=== PATIENT | male | born 1990 | race Caucasian/White ===

== ENCOUNTER 2019-12-03 19:04 | Emergency (ER) | payer MEDICAID ==
--- NOTE | 2019-12-03 19:30 | ERPHSYRPT ---
- History of Present Illness Time Seen by Provider: 12/03/19 19:20 Historian: patient Exam Limitations: no limitations Physician History: Patient is a 29-year-old male presents to our ED with complaints of left lower abdominal pain. Patient has been experiencing chronic pain at this location for several years however pain became acutely worse this morning. Patient states he can feel a palpable mass at this location. Patient concerned he may have a hernia. Pain described as an ache that is well localized. No radiation. Pain worse with movement and palpation. Pain improved with rest. No associated trauma. No fevers. No nausea or vomiting. No diarrhea. No hematuria patient is otherwise healthy. He voices no other complaints at this time. Timing/Duration: today (Acute on chronic pain.) Activities at Onset: none Quality: aching Abdominal Pain Onset Location: LLQ Pain Radiation: no radiation Severity of Pain-Max: moderate Severity of Pain-Current: mild Modifying Factors: Improves With: movement, palpation Associated Symptoms: denies symptoms, No chest pain, No fever/chills, No nausea , No testicular pain, No vomiting Previous symptoms: same symptoms as today Allergies/Adverse Reactions: No Known Drug Allergies Allergy (Unverified 12/03/19 19:42) Home Medications: No Reportable Medications [No Reported Medications] 12/03/19 [History] - Review of Systems Constitutional: No Symptoms, No Fever, No Chills Eyes: No Symptoms Ears, Nose, & Throat: No Symptoms Respiratory: No Symptoms, No Cough, No Dyspnea Cardiac: No Symptoms, No Chest Pain, No Edema, No Syncope Abdominal/Gastrointestinal: No Symptoms, Abdominal Pain, No Nausea, No Vomiting , No Diarrhea Genitourinary Symptoms: No Symptoms, No Dysuria Musculoskeletal: No Symptoms, No Back Pain, No Neck Pain Skin: No Symptoms, No Rash Neurological: No Symptoms, No Dizziness, No Focal Weakness, No Sensory Changes Psychological: No Symptoms Endocrine: No Symptoms Hematologic/Lymphatic: No Symptoms Immunological/Allergic: No Symptoms All Other Systems: Reviewed and Negative - Past Medical History Pertinent Past Medical History: No Neurological History: No Pertinent History ENT History: No Pertinent History Cardiac History: No Pertinent History Respiratory History: No Pertinent History Endocrine Medical History: No Pertinent History Musculoskeletal History: No Pertinent History GI Medical History: No Pertinent History History: No Pertinent History Psycho-Social History: No Pertinent History Male Reproductive Disorders: No Pertinent History - Past Surgical History Past Surgical History: Yes Neuro Surgical History: No Pertinent History Cardiac: No Pertinent History Respiratory: No Pertinent History Gastrointestinal: Hernia Repair Genitourinary: No Pertinent History Musculoskeletal: No Pertinent History Male Surgical History: No Pertinent History - Social History Drug Use: none - Nursing Vital Signs Nursing Vital Signs: Initial Vital Signs Temperature 98.5 F 12/03/19 19:15 Pulse Rate 69 12/03/19 19:15 Respiratory Rate 20 12/03/19 19:15 Blood Pressure 166/101 12/03/19 19:15 O2 Sat by Pulse Oximetry 99 12/03/19 19:15 Pain Scale Pain Intensity 5 - Physical Exam General Appearance: no apparent distress, alert Eye Exam: PERRL/EOMI, eyes nml inspection, No scleral icterus Ears, Nose, Throat Exam: normal ENT inspection, pharynx normal, moist mucous membranes Neck Exam: normal inspection, non-tender, supple, full range of motion, No mass Respiratory Exam: normal breath sounds, lungs clear, No respiratory distress, No airway intact, No accessory muscle use Cardiovascular Exam: regular rate/rhythm, normal heart sounds, No normal peripheral pulses, No capillary refill <2 sec Gastrointestinal/Abdomen Exam: soft, normal bowel sounds, tenderness, No mass, No guarding (Tenderness to palpation left lower quadrant. Palpation in this location reproduces patient symptomology. Overlying soft tissue intact. No signs of trauma. Negative [place] sign. Negative [place] Em sign.) Back Exam: normal inspection, normal range of motion, No CVA tenderness, No vertebral tenderness Extremity Exam: normal inspection, normal range of motion, pelvis stable Neurologic Exam: alert, oriented x 3, cooperative, normal mood/affect, nml cerebellar function, sensation nml, No motor deficits Skin Exam: normal color, warm, dry, No rash, No jaundice Lymphatic Exam: No adenopathy SpO2 Interpretation: normal SpO2: 99 O2 Delivery: Room Air - Course Nursing assessment & vital signs reviewed: Yes - CT Exams Abdomen/Pelvis CT Interpretation: Tele-radiologist Report (There is fecal retention, periumbilical and umbilical fat-containing hernia, diverticulosis no diverticulitis) Ordered Tests: Active Orders 24 hr Category Date Time Status IV Insertion STAT Care 12/03/19 19:20 Active Isolation, Initiate & Maintain Q4H Care 12/03/19 19:29 Active ABDOMEN AND PELVIS W CONTRAST [CT] Stat Exams 12/03/19 19:22 Taken CBC W DIFF Stat Lab 12/03/19 19:43 Completed CMP Stat Lab 12/03/19 19:43 Completed LIPASE Stat Lab 12/03/19 19:43 Completed UA W/RFX UR CULTURE Stat Lab 12/03/19 19:59 Completed Medication Summary Discontinued Medications Generic Name Dose Route Start Last Admin Trade Name Eric PRN Reason Stop Dose Admin Sodium Chloride 1,000 mls @ 999 mls/hr 12/03/19 19:20 12/03/19 20:03 Sodium Chloride 0.9% 1000 Ml IV 12/03/19 20:20 999 mls/hr .Q1H1M STA Administration Sodium Chloride Confirm 12/03/19 19:55 Sodium Chloride 0.9% 1000 Ml Administered 12/03/19 19:56 Dose 1,000 mls @ ud .ROUTE .STK-MED ONE Ketorolac Tromethamine 30 mg 12/03/19 19:20 12/03/19 19:56 Toradol 30 Mg Injection IV 12/03/19 19:21 30 mg STAT ONE Administration Ketorolac Tromethamine Confirm 12/03/19 19:55 Toradol 30 Mg Injection Administered 12/03/19 19:56 Dose 30 mg .ROUTE .STK-MED ONE Lab/Rad Data: Laboratory Result Diagrams 12/03/19 19:43 12/03/19 19:43 Laboratory Results 12/03/19 12/03/19 12/03/19 Range/Units 19:59 19:43 19:43 WBC 10.5 (4.0-10.5) K/mm3 RBC 5.11 (4.1-5.6) M/mm3 Hgb 16.3 (12.5-18.0) gm/dl Hct 46.4 (42-50) % MCV 90.8 (78-100) fl MCH 31.9 (26-32) pg MCHC 35.1 (32-36) g/dl RDW 13.3 (11.5-14.0) % Plt Count 277 (150-450) K/mm3 MPV 11.5 H (7.5-11.0) fl Gran % 58.9 (36.0-66.0) % Eos # (Auto) 0.34 (0-0.5) Absolute Lymphs (auto) 3.01 (1.0-4.6) Absolute Monos (auto) 0.96 (0.0-1.3) Lymphocytes % 28.6 (24.0-44.0) % Monocytes % 9.1 (0.0-12.0) % Eosinophils % 3.2 (0.00-5.0) % Basophils % 0.2 (0.0-0.4) % Absolute Granulocytes 6.19 (1.4-6.9) Basophils # 0.02 (0-0.4) Sodium 141 (137-145) mmol/L Potassium 3.9 (3.5-5.1) mmol/L Chloride 103 (98-107) mmol/L Carbon Dioxide 27 (22-30) mmol/L Anion Gap 15.2 H (5-15) MEQ/L BUN 17 (9-20) mg/dL Creatinine 1.03 (0.66-1.25) mg/dL Estimated GFR > 60.0 ML/MIN Glucose 87 (74-106) mg/dL Calcium 9.9 (8.4-10.2) mg/dL Total Bilirubin 0.50 (0.2-1.3) mg/dL AST 39 (17-59) U/L ALT 69 H (0-50) U/L Alkaline Phosphatase 51 (38-126) U/L Serum Total Protein 8.1 (6.3-8.2) g/dL Albumin 4.9 (3.5-5.0) g/dL Lipase 42 (23-300) U/L Urine Color YELLOW (YELLOW) Urine Appearance CLEAR (CLEAR) Urine pH 7.0 (5-6) Ur Specific [place] 1.016 (1.005-1.025) Urine Protein NEGATIVE (Negative) Urine Ketones SMALL (NEGATIVE) Urine Blood NEGATIVE (0-5) Luis E/ul Urine Nitrite NEGATIVE (NEGATIVE) Urine Bilirubin NEGATIVE (NEGATIVE) Urine Urobilinogen NEGATIVE (0-1) mg/dL Ur Leukocyte Esterase NEGATIVE (NEGATIVE) Urine WBC (Auto) NONE (0-5) /HPF Urine RBC (Auto) NONE (0-2) /HPF U Epithel Cells (Auto) NONE (FEW) /HPF Urine Bacteria (Auto) NONE (NEGATIVE) /HPF Urine Culture Reflexed NO (NO) Urine Glucose NEGATIVE (NEGATIVE) mg/dL - Progress Progress: improved Progress Note: 12/03/19 21:29 Patient reassessed. He feels well. No active pain. Patient has no complaints. Work-up significant for fecal retention which may be causing patient symptomology. No further work-up or intervention at this time. Will discharge patient home. Patient may consider [id number] laxative. Counseled pt/family regarding: lab results, diagnosis, need for follow-up, rad results - Departure Departure Disposition: Home Clinical Impression: Constipation, intestinal colic Condition: Stable Critical Care Time: No Referrals: DOCTOR,NO FAMILY [Primary Care Provider] - MARYCRUZ ELIZABETH DO [ACTIVE STAFF] - Additional Instructions: Discharge/Care Plan YOAN MATEHWS was seen on 12/03/19 in the Emergency Room. The patient was counseled regarding Diagnosis,Lab results, Imaging studies, need for follow up and when to return to the Emergency Room. Prescriptions given: Discharge Note I have spoken with the patient and/or caregivers. I have explained the patient' s condition, diagnosis and treatment plan based on the information available to me at this time. I have answered the patient's and/or caregiver's questions and addressed any concerns. The patient and/or caregivers have as good understanding of the patient's diagnosis, condition and treatment plan as can be expected at this point. The vital signs have been stable. The patient's condition is stable and appropriate for discharge from the emergency department. The patient will pursue further outpatient evaluation with the primary care physician or other designated or consulting physician as outlined in the discharge instructions. The patient and/or caregivers are agreeable to this plan of care and follow-up instructions have been explained in detail. The patient and/or caregivers have received these instruction. The patient/and or caregivers are aware that any significant change in condition or worsening of symptoms should prompt an immediate return to this or the closest emergency department or call 911.
[2019-12-03] MEDS ORDERED: TORAdol 30 mg Injection ONE (19:55)
[2019-12-03] MEDS ORDERED: Sodium Chloride 0.9% 1000 ML 1,000 ML ONE (19:55)
[2019-12-03] MEDS: TORAdol 30 mg Injection IV ONE (19:56)
[2019-12-03 20:00] LABS: Absolute Neutrophil Ct (ANC) 6.19 (1.4-6.9); BASOPHIL % 0.2 % (0.0-0.4); Basophil (Absolute #) 0.02 (0-0.4); Eosinophil % 3.2 % (0.00-5.0); Eosinophil (Absolute #) 0.34 (0-0.5); Hematocrit 46.4 % (42-50); Hemoglobin 16.3 gm/dl (12.5-18.0); Lymphocyte (Absolute #) 3.01 (1.0-4.6); Lymphocytes % 28.6 % (24.0-44.0); Mean Cell Volume 90.8 fl (78-100); Mean Corpuscular Hemoglobin 31.9 pg (26-32); Mean Corpuscular Hgb Concent. 35.1 g/dl (32-36); Mean Platelet Volume 11.5 fl (7.5-11.0); Monocyte (Absolute #) 0.96 (0.0-1.3); Monocytes % 9.1 % (0.0-12.0); Neutrophil % 58.9 % (36.0-66.0); Platelet Count 277 K/mm3 (150-450); Red Blood Count 5.11 M/mm3 (4.1-5.6); Red Cell Distribution Width 13.3 % (11.5-14.0); White Blood Count 10.5 K/mm3 (4.0-10.5)
[2019-12-03 20:03] LABS: Appearance CLEAR (CLEAR); Bilirubin NEGATIVE (NEGATIVE); Blood NEGATIVE Ery/ul (0-5); Glucose NEGATIVE (NEGATIVE); Ketones SMALL (NEGATIVE); Leukocyte Esterase NEGATIVE (NEGATIVE); Nitrite NEGATIVE (NEGATIVE); Protein,Urine Dip NEGATIVE (Negative); Specific Gravity 1.016 (1.005-1.025); Urobilinogen NEGATIVE mg/dL (0-1)
[2019-12-03] MEDS: Sodium Chloride 0.9% 1000 ML 1,000 ML IV STA (20:03)
[2019-12-03 20:06] LABS: ALBUMIN 4.9 g/dL (3.5-5.0); ALKALINE PHOSPHATASE 51 U/L (38-126); ANION GAP 15.2 MEQ/L (5-15); BLOOD UREA NITROGEN 17 mg/dL (9-20); CHLORIDE 103 mmol/L (98-107); Calcium 9.9 mg/dL (8.4-10.2); Carbon Dioxide 27 mmol/L (22-30); Creatinine 1 1.03 mg/dL (0.66-1.25); Glucose 87 mg/dL (74-106); LIPASE 42 U/L (23-300); Potassium 3.9 mmol/L (3.5-5.1); SGOT/AST 39 U/L (17-59); SGPT/ALT 69 U/L (0-50); SODIUM 141 mmol/L (137-145); Total Protein 8.1 g/dL (6.3-8.2)
[2019-12-03 21:33] VITALS: BP 156/96; PULSE 74; O2SAT 99
--- NOTE | 2019-12-04 11:42 | XRAY ---
Exam: CT of the abdomen and pelvis with IV contrast from 12/03/2019. CTDI: 7.53 mGy Comparison: None. Indication: 29-year-old male complains of localized abdominal pain within the left lower quadrant. He has a history of bilateral inguinal hernia repair as an infant. Complains of severe left lower quadrant abdominal pain for one day with a "knot" located anteriorly. The patient states that his pain has been in the same spot for 2 years, although the "knot" comes and goes. Technique: Post-IV contrast axial images were obtained during and following automated injection of 80 ML's of Isovue 370 contrast material. Reconstructed coronal and sagittal images were created and reviewed. Findings: The visualized lung bases are clear except for some minimal posterior bibasilar compression atelectasis. The liver is of unremarkable size and uniform attenuation. No hepatic mass or biliary duct distention is seen. The gallbladder is relatively contracted. No definite high attenuation stone is seen within the gallbladder lumen. The spleen appears of normal size and reveals no mass. The pancreas and adrenal glands appear unremarkable. The kidneys appear of normal size and shape. No renal mass, hydronephrosis, or renal calculi are seen. The kidneys function well on delayed images. The abdominal aorta appears of normal diameter without abdominal aortic aneurysm or abnormal retroperitoneal lymphadenopathy. I see no free intraperitoneal air. There is a mild umbilical/periumbilical fat-containing hernia measuring a maximum of 3.6 cm in craniocaudal dimension and 3.0 cm in maximum width. No bowel containing hernia is seen at this level. The remainder of the anterior abdominal wall appears intact. The appendix appears unremarkable without evidence of appendicitis. No abnormal bowel distention is seen to suggest obstruction. Scattered nonspecific stool is seen within the cecum, ascending colon, transverse colon, and descending colon. I see no significant bowel wall thickening to suggest colitis. There appears to be some minimal colonic diverticulosis without evidence of diverticulitis, particularly within the left lower quadrant. There is no free intraperitoneal fluid. No ureteral calculi or distention is seen. The urinary bladder appears unremarkable. The seminal vesicles appear normal. The prostate gland is not enlarged. No enlarged pelvic lymph nodes are seen. The skeleton reveals no acute fracture or aggressive bone lesion. Impression: 1. Mild fat-containing umbilical/periumbilical hernia without evidence of herniated bowel loops. The remainder of the anterior abdominal wall appears intact. 2. Minimal colonic diverticulosis without evidence of acute diverticulitis. 3. Normal appendix. 4. Mild colonic stool retention within the cecum, ascending colon, transverse colon, and descending colon. No bowel obstruction is seen. 5. No other acute process is seen within the abdomen or pelvis..
== END 2019-12-03 21:45 | disposition home or self-care (01) ==
LOC: ED 19:04
DX: K59.00 Constipation, unspecified (principal); R10.84 Generalized abdominal pain
CPT/HCPCS: 36000; 36415; 74177; 80053; 81001; 83690; 85025; 96360; 96374; 99284; J1885

== ENCOUNTER 2021-11-11 23:54 | Emergency (ER) | payer BC ==
--- NOTE | 2021-11-11 23:57 | ERPHSYRPT ---
- History of Present Illness Time Seen by Provider: 11/11/21 23:57 Source: patient Exam Limitations: no limitations Physician History: This is a 31-year-old white male who was having some left ear pain yesterday and throughout the day it seemed to worsen. He was concerned he might of perforated his eardrum. He can hear fine now per his report. However he felt as though earlier he was having some muffled hearing. This has improved. However he still has a persistent pain. He says he is having significant pain where he cannot sleep and he has to get up at 5 AM today to go to work. He has to go to work he says he cannot miss work. He has no chest pain. He has no shortness of breath. He has no fevers. He has no abdominal pain. He denies injury to the left ear. Severity: moderate ENT Location: ear (L) Prearrival Treatment: no prearrival treatment Modifying Factors: Improves With: activity Associated Symptoms: ear pain (L) Allergies/Adverse Reactions: No Known Drug Allergies Allergy (Verified 11/12/21 00:15) Hx Tetanus, Diphtheria Vaccination/Date Given: Yes Hx Influenza Vaccination/Date Given: No Hx Pneumococcal Vaccination/Date Given: No Travel Risk - International Travel Have you traveled outside of the country in past 3 weeks: No - Coronavirus Screening Are you exhibiting any of the following symptoms?: No Close contact with a COVID-19 positive Pt in past 14-21 Days: No - Review of Systems Constitutional: No Symptoms Eyes: No Symptoms Ears, Nose, & Throat: No Symptoms, Ear Pain, Hearing Changes (Has resolved), No Ear Discharge Respiratory: No Symptoms Cardiac: No Symptoms Abdominal/Gastrointestinal: No Symptoms Genitourinary Symptoms: No Symptoms Musculoskeletal: No Symptoms Skin: No Symptoms Neurological: No Symptoms Psychological: No Symptoms Endocrine: No Symptoms Hematologic/Lymphatic: No Symptoms Immunological/Allergic: No Symptoms All Other Systems: Reviewed and Negative - Past Medical History Pertinent Past Medical History: No Neurological History: No Pertinent History ENT History: No Pertinent History Cardiac History: No Pertinent History Respiratory History: No Pertinent History Endocrine Medical History: No Pertinent History Musculoskeletal History: No Pertinent History GI Medical History: No Pertinent History History: No Pertinent History Psycho-Social History: No Pertinent History Male Reproductive Disorders: No Pertinent History - Past Surgical History Past Surgical History: Yes Neuro Surgical History: No Pertinent History Cardiac: No Pertinent History Respiratory: No Pertinent History Gastrointestinal: Hernia Repair Genitourinary: No Pertinent History Musculoskeletal: No Pertinent History Male Surgical History: No Pertinent History - Social History Smoking Status: Current every day smoker How long have you smoked: 30 years Exposure to second hand smoke: Yes Drug Use: none Patient Lives Alone: No - Nursing Vital Signs Nursing Vital Signs: Initial Vital Signs Temperature 97.3 F 11/11/21 23:54 Pulse Rate 82 11/11/21 23:54 Respiratory Rate 18 11/11/21 23:54 Blood Pressure 155/102 11/11/21 23:54 O2 Sat by Pulse Oximetry 98 11/11/21 23:54 Pain Scale Pain Intensity 10 - Physical Exam General Appearance: no apparent distress, alert, anxiety Eye Exam: bilateral eye: normal inspection, PERRL, EOMI Ear Exam: right ear: canal normal, TM normal, left ear: swelling, tenderness, TM red, bilateral ear: auricle normal Nasal Exam: normal inspection Throat Exam: normal, pharynx normal, No dental tenderness Neck Exam: normal inspection, non-tender, supple, full range of motion, trachea midline Cardiovascular/Respiratory Exam: chest non-tender, no respiratory distress Abdominal Exam: non-tender Neurologic Exam: alert, oriented x 3, cooperative, executive sales assistant II-XII nml as tested, normal mood/affect, nml cerebellar function, nml station & gait, sensation nml Skin Exam: normal color, warm, dry SpO2 Interpretation: normal O2 Delivery: Room Air - Course Nursing assessment & vital signs reviewed: Yes Ordered Tests: Medication Summary Discontinued Medications Generic Name Dose Route Start Last Admin Trade Name Eric PRN Reason Stop Dose Admin Hydrocodone Bitart/Acetaminophen 1 tab 11/12/21 00:23 Hydrocodone/Apap 5/325 Mg Tablet PO 11/12/21 00:24 STAT ONE Amoxicillin 500 mg 11/12/21 00:21 Amoxicillin Trihydrate 500 Mg Capsule PO 11/12/21 00:22 STAT ONE Prednisone 20 mg 11/12/21 00:22 Prednisone 20 Mg Tablet PO 11/12/21 00:23 STAT ONE - Progress Progress: unchanged Counseled pt/family regarding: diagnosis, need for follow-up - Departure Departure Disposition: Home Clinical Impression: Left otitis media Condition: Stable Critical Care Time: No Referrals: DOCTOR,NO FAMILY [Primary Care Provider] - Follow up/PCP as directed Additional Instructions: Take your antibiotics as prescribed. Take your other medications as prescribed. Follow-up with a ear nose and throat physician later this morning to make arrangements for follow-up appointment and for further management. Prescriptions: Amoxicillin 500 mg Cap [Amoxil 500 mg] 500 mg PO TID #30 cap Prednisone 10 mg [Deltasone 10 mg] 10 mg PO TID #12 tablet
[2021-11-12] MEDS ORDERED: AMOXIL 500 MG PO ONE (00:21)
[2021-11-12] MEDS ORDERED: DELTASONE 20 MG PO ONE (00:22)
[2021-11-12] MEDS ORDERED: NORCO 5/325 MG PO ONE (00:23)
[2021-11-12] MEDS ORDERED: DELTASONE 20 MG ONE (00:29)
[2021-11-12] MEDS ORDERED: AMOXIL 500 MG ONE (00:29)
[2021-11-12] MEDS ORDERED: NORCO 5/325 MG ONE (00:29)
[2021-11-12 00:39] VITALS: BP 129/87; PULSE 73; O2SAT 95
== END 2021-11-12 01:08 | disposition home or self-care (01) ==
LOC: ED 23:54
DX: H66.92 Otitis media, unspecified, left ear (principal); Z72.0 Tobacco use; H92.02 Otalgia, left ear; Z79.52 Long term (current) use of systemic steroids
CPT/HCPCS: 99283; A9270-GY

== ENCOUNTER 2022-05-29 02:21 | Emergency (ER) | payer BC ==
--- NOTE | 2022-05-29 04:06 | ERPHSYRPT ---
- History of Present Illness Time Seen by Provider: 05/29/22 04:03 Historian: patient Exam Limitations: no limitations Patient Subjective Stated Complaint: pt states "I haven't had a bowel movement in 4 days." Triage Nursing Assessment: pt ambulatory to bed by self, A&O x3, c/o constipation x4 days, pt has tried miralax, mag citrate, and enemas at home with no relief, pt is passing gas, bowel sounds active in all 4 quadrants, LLQ tender upon palpation, pt has hx of hernia repair as an infant, pt recently has quit smoking 3 days ago Physician History: 31 years old male presented in the ER with chief complaint of constipation. Patient reports he has lost bowel movement for almost 4 days ago. Patient feels that he needs to go but cannot despite taking [id number] laxatives. Patient feels some cramping on bilateral flanks. No nausea or vomiting reported. He also has taken enema with no relief. Patient recently started a new job and cold turkey quit almost 2 packs daily smoking and is having aches an d pains all over. Feels a little anxious. Timing/Duration: day(s) (4), gradual onset Activities at Onset: rest Quality: cramping Abdominal Pain Onset Location: generalized abdomen Pain Radiation: no radiation Severity of Pain-Max: moderate Severity of Pain-Current: mild Modifying Factors: Improves With: nothing Associated Symptoms: fatigue Allergies/Adverse Reactions: No Known Drug Allergies Allergy (Verified 11/12/21 00:15) Home Medications: No Reportable Medications [No Reported Medications] 05/29/22 [History] Hx Tetanus, Diphtheria Vaccination/Date Given: Yes Hx Influenza Vaccination/Date Given: No Hx Pneumococcal Vaccination/Date Given: No Immunizations Up to Date: Yes Travel Risk - International Travel Have you traveled outside of the country in past 3 weeks: No - Coronavirus Screening Are you exhibiting any of the following symptoms?: No Close contact with a COVID-19 positive Pt in past 14-21 Days: No - Vaccine Status Have you recieved a Covid-19 vaccination: No - Review of Systems Constitutional: Fatigue Eyes: No Symptoms Ears, Nose, & Throat: No Symptoms Respiratory: No Symptoms Cardiac: No Symptoms Abdominal/Gastrointestinal: Abdominal Pain, Constipation Genitourinary Symptoms: No Symptoms Musculoskeletal: Myalgias Skin: No Symptoms Neurological: No Symptoms Endocrine: No Symptoms Immunological/Allergic: No Symptoms - Past Medical History Pertinent Past Medical History: No Neurological History: No Pertinent History ENT History: No Pertinent History Cardiac History: No Pertinent History Respiratory History: No Pertinent History Endocrine Medical History: No Pertinent History Musculoskeletal History: No Pertinent History GI Medical History: No Pertinent History History: No Pertinent History Psycho-Social History: No Pertinent History Male Reproductive Disorders: No Pertinent History - Past Surgical History Past Surgical History: Yes Neuro Surgical History: No Pertinent History Cardiac: No Pertinent History Respiratory: No Pertinent History Gastrointestinal: Hernia Repair Genitourinary: No Pertinent History Musculoskeletal: No Pertinent History Male Surgical History: No Pertinent History Other Surgical History: tubes in ears twice as a child - Social History Smoking Status: Former smoker How long have you smoked: 30 years Exposure to second hand smoke: No Drug Use: none Patient Lives Alone: No - Nursing Vital Signs Nursing Vital Signs: Initial Vital Signs Temperature 97.9 F 05/29/22 02:34 Pulse Rate 85 05/29/22 02:34 Respiratory Rate 15 05/29/22 02:34 Blood Pressure 137/99 05/29/22 02:34 O2 Sat by Pulse Oximetry 98 05/29/22 02:34 Pain Scale Pain Intensity 2 - Physical Exam General Appearance: no apparent distress, alert Eye Exam: PERRL/EOMI Ears, Nose, Throat Exam: normal ENT inspection Neck Exam: normal inspection Respiratory Exam: normal breath sounds, lungs clear Cardiovascular Exam: regular rate/rhythm, normal heart sounds Gastrointestinal/Abdomen Exam: soft, normal bowel sounds, No tenderness Back Exam: normal inspection, normal range of motion Extremity Exam: normal inspection, normal range of motion Neurologic Exam: alert, oriented x 3, cooperative Skin Exam: normal color SpO2 Interpretation: normal SpO2: 94 O2 Delivery: Room Air Ordered Tests: Active Orders 24 hr Category Date Time Status KUB Stat Exams 05/29/22 02:59 Taken - Progress Progress: unchanged Progress Note: 05/29/22 04:04 Abdominal exam is soft nontender with good bowel sounds in all 4 quadrants. X- rays negative for obstruction. No extra/heavy stool load noted on the x-rays. Patient later on reported that he has not been eating well in the last 2 days. I believe patient is having cramping from taking all these laxatives. Also having some symptoms of nicotine withdrawals. I would not give him any enema, and recommended increase fiber in diet/daily MiraLAX and outpatient follow-up. Recommended using nicotine patches/gums to help with quitting. Discussed signs symptoms of worsening needing return to ER which she seems understanding. Stable for discharge. Counseled pt/family regarding: diagnosis, need for follow-up, rad results - Departure Departure Disposition: Home Clinical Impression: Constipation Condition: Stable Critical Care Time: No Referrals: DOCTOR,NO FAMILY [Primary Care Provider] - Follow up/PCP as directed ESTRELLA FULLER MD [ACTIVE STAFF] - Follow Up with PCP/3 days Instructions: Constipation, Adult (DC) Additional Instructions: Take daily 17 grams of MiraLAX. Increase fiber in diet. Take Tylenol/ibuprofen as needed for pain. Follow-up with primary care for reevaluation. Return to ER for inability to have a bowel movement, abdominal pain/cramping/nausea vomiting etc.
[2022-05-29 04:24] VITALS: BP 124/82; PULSE 76; O2SAT 97
--- NOTE | 2022-05-29 08:36 | XRAY ---
Indication: Abdomen pain and constipation. Obstruction. Comparison: None KUB nonacute and nonobstructed. Solid organs and osseous structures unremarkable. Comment: Preliminary interpretation made by [facility]. No critical discrepancy.
== END 2022-05-29 04:24 | disposition home or self-care (01) ==
LOC: ED 02:21
DX: K59.00 Constipation, unspecified (principal); R10.9 Unspecified abdominal pain; F17.213 Nicotine dependence, cigarettes, with withdrawal; Z28.310 Unvaccinated for COVID-19
CPT/HCPCS: 74018; 99282

== ENCOUNTER 2023-01-17 15:51 | Emergency (ER) | payer BC ==
[2023-01-17 16:04] VITALS: BP 145/101; PULSE 80; O2SAT 96
--- NOTE | 2023-01-17 16:32 | ERPHSYRPT ---
- History of Present Illness Time Seen by Provider: 01/17/23 15:55 Source: patient Exam Limitations: no limitations Patient Subjective Stated Complaint: pt arrived per wc, co pain to right foot and ankle after kicking a door about 30 mins ago Triage Nursing Assessment: pt alert, resp easy, skin w/d/p. arrived per wc, skin w/d/p, no swelling or bruiising to right foot, strong radial pulse Physician History: 32 years old male presented in the ER after he got angry at something and kicked the door really hard with shoes on. This happened almost 30 minutes prior to arrival with moderate to severe sharp pain in the foot and ankle, gets worse with ambulation. And better with resting. No injury anywhere else. Method of Injury: direct blow Occurred: just prior to arrival Quality: sharpness Severity of Pain-Max: moderate Severity of Pain-Current: moderate Lower Extremities Pain: foot: right, ankle: right Modifying Factors: Improves With: immobilization. Worsens With: movement Associated Symptoms: none Allergies/Adverse Reactions: No Known Drug Allergies Allergy (Verified 01/17/23 15:55) Home Medications: Lamotrigine [Lamotrigine ER] 50 mg PO DAILY 01/17/23 [History] Venlafaxine HCl 37.5 mg [Effexor 37.5 mg] 37.5 mg PO DAILY 01/17/23 [History] Hx Tetanus, Diphtheria Vaccination/Date Given: No Hx Influenza Vaccination/Date Given: No Hx Pneumococcal Vaccination/Date Given: No Immunizations Up to Date: Yes Travel Risk - International Travel Have you traveled outside of the country in past 3 weeks: No - Coronavirus Screening Are you exhibiting any of the following symptoms?: No Close contact with a COVID-19 positive Pt in past 14-21 Days: No - Vaccine Status Have you recieved a Covid-19 vaccination: No - Review of Systems Constitutional: No Symptoms Ears, Nose, & Throat: No Symptoms Respiratory: No Symptoms Cardiac: No Symptoms, Orthopnea Musculoskeletal: Injury Neurological: No Symptoms Endocrine: No Symptoms - Past Medical History Pertinent Past Medical History: Yes Neurological History: No Pertinent History ENT History: No Pertinent History Cardiac History: No Pertinent History Respiratory History: No Pertinent History Endocrine Medical History: No Pertinent History Musculoskeletal History: No Pertinent History GI Medical History: No Pertinent History History: No Pertinent History Psycho-Social History: Depression Male Reproductive Disorders: No Pertinent History - Past Surgical History Past Surgical History: Yes Neuro Surgical History: No Pertinent History Cardiac: No Pertinent History Respiratory: No Pertinent History Gastrointestinal: Hernia Repair Genitourinary: No Pertinent History Musculoskeletal: No Pertinent History Male Surgical History: No Pertinent History Other Surgical History: tubes in ears twice as a child - Social History Smoking Status: Current every day smoker How long have you smoked: 30 years Exposure to second hand smoke: Yes Drug Use: none Patient Lives Alone: Yes - Nursing Vital Signs Nursing Vital Signs: Initial Vital Signs Temperature 97.3 F 01/17/23 16:03 Pulse Rate 80 01/17/23 16:03 Respiratory Rate 18 01/17/23 16:03 Blood Pressure 145/101 01/17/23 16:03 O2 Sat by Pulse Oximetry 96 01/17/23 16:03 Pain Scale Pain Intensity 10 - Physical Exam General Appearance: no apparent distress, alert Neck Exam: normal inspection Cardiovascular/Respiratory Exam: normal breath sounds, regular rate/rhythm Ankle Exam: right ankle: soft tissue tenderness (Anterior ankle), bilateral ankle: normal inspection, normal range of motion, no evidence of injury Foot Exam: right foot: bone tenderness (Distal foot), pain, soft tissue tenderness, left foot: non-tender, bilateral foot: normal inspection, normal range of motion Neuro/Tendon Exam: normal sensation, normal motor functions, normal tendon functions Mental Status Exam: alert, oriented x 3, cooperative Skin Exam: normal color SpO2 Interpretation: normal SpO2: 96 O2 Delivery: Room Air Ordered Tests: Active Orders 24 hr Category Date Time Status ANKLE (3 VIEWS) Stat Exams 01/17/23 16:04 Completed FOOT (MINIMUM 3 VIEWS) Stat Exams 01/17/23 16:04 Completed Medication Summary Discontinued Medications Generic Name Dose Route Start Last Admin Trade Name Freq PRN Reason Stop Dose Admin Ibuprofen 600 mg 01/17/23 17:15 01/17/23 17:30 Ibuprofen 600 Mg Tablet PO 01/17/23 17:16 600 mg STAT ONE Administration Ibuprofen Confirm 01/17/23 17:29 Ibuprofen 600 Mg Tablet Administered 01/17/23 17:30 Dose 600 mg .ROUTE .STK-MED ONE Ketorolac Tromethamine 30 mg 01/17/23 16:30 01/17/23 16:51 Ketorolac Tromethamine 30 Mg/Ml Inj IM 01/17/23 16:31 Not Given STAT ONE Ketorolac Tromethamine Confirm 01/17/23 16:35 Ketorolac Tromethamine 30 Mg/Ml Inj Administered 01/17/23 16:36 Dose 30 mg .ROUTE .STK-MED ONE - Progress Progress: pain not gone completely Progress Note: 01/17/23 17:17 32-year-old is evaluated in the ER after he kicked door prior to arrival with moderate to severe sharp pain on the foot and ankle area making it difficult to ambulate. No swelling of the foot. Does not have any medial malleoli or tenderness. I have obtain x-rays foot and ankle which are negative for fracture dislocation reviewed by me, official report is pending. I believe patient has some kind of ligament injury/contusion, given ibuprofen for symptomatic relief and will place in a walking boot and outpatient follow-up recommended. Discussed signs symptoms of worsening needing return to ER which he seems understanding. 01/17/23 17:20 Counseled pt/family regarding: diagnosis, need for follow-up, rad results Medical Desision Making - Diagnostic Testing Diagnostic test were ordered, analyzed, and reviewed by me: Yes Radiological Interpretation: Interpreted by me, Reviewed by me - Risk of complications The pt has a mod risk of morbidity or mortality based on: Need for prescription drug management - Departure Departure Disposition: Home Clinical Impression: Contusion of foot including toes Condition: Stable Critical Care Time: No Referrals: DOCTOR,NO FAMILY [NON-STAFF PHY W/O PRIVILEGES] - Follow up/PCP as directed MICHAEL HA DPM [ACTIVE STAFF] - Follow up/PCP as directed (In 2 days for reevaluation) Instructions: Contusion (DC), Foot Sprain (DC) Additional Instructions: Weightbearing as tolerated. Follow-up with podiatry for reevaluation. Intermittent ice application. Tylenol/ibuprofen as needed. Return to ER for any worsening. Prescriptions: Ibuprofen 600 mg PO Q6HPRN PRN 10 Days #20 tablet PRN Reason: Pain
[2023-01-17] MEDS ORDERED: TORAdol 30 mg Injection ONE (16:35)
[2023-01-17] MEDS: TORAdol 30 mg Injection IM ONE ×2 (16:36→16:51)
[2023-01-17] MEDS ORDERED: MOTRIN 600 MG PO ONE (17:15)
[2023-01-17] MEDS ORDERED: MOTRIN 600 MG ONE (17:29)
--- NOTE | 2023-01-17 19:01 | XRAY ---
Indication: Pain following kicking injury. Comparison: None 3 view right ankle obtained. No bony, articular, or soft tissue abnormalities.
--- NOTE | 2023-01-17 19:03 | XRAY ---
Indication: Pain following kicking injury. Comparison: None 3 nonweightbearing views right foot obtained. No bony, articular, or soft tissue abnormalities.
== END 2023-01-17 17:44 | disposition home or self-care (01) ==
LOC: ED 15:51
DX: S90.31XA Contusion of right foot, initial encounter (principal); W22.09XA Striking against other stationary object, initial encounter; Z79.899 Other long term (current) drug therapy; Z28.310 Unvaccinated for COVID-19; Z72.0 Tobacco use
CPT/HCPCS: 73610; 73630; 99283; J1885; L4386; A9270-GY